=== PATIENT | female | born 1995 | race Caucasian/White ===

== ENCOUNTER 2018-06-24 14:56 | Emergency (ER) | payer OTHER ==
[~2018-06-24] VITALS: Ht 170.2 cm; Wt 63.6 kg
[2018-06-24 16:26] VITALS: BP 109/68
== END 2018-06-24 16:26 | disposition home or self-care (01) ==
LOC: M ED 14:56
DX: Z04.1 Encounter for examination and observation following transport accident (principal); V47.6XXA Car passenger injured in collision with fixed or stationary object in traffic accident, initial encounter; Y92.410 Unspecified street and highway as the place of occurrence of the external cause; Z3A.14 14 weeks gestation of pregnancy

== ENCOUNTER 2018-07-06 11:06 | Emergency (ER) | payer OTHER ==
[~2018-07-06] VITALS: Ht 170.2 cm; Wt 65.6 kg
[2018-07-06 11:07] VITALS: BP 105/67
[2018-07-06] MEDS ORDERED: prenatal PO (11:24)
== END 2018-07-06 11:52 | disposition home or self-care (01) ==
LOC: M ED 11:06
DX: O26.892 Other specified pregnancy related conditions, second trimester (principal); R10.13 Epigastric pain; Z3A.16 16 weeks gestation of pregnancy

== ENCOUNTER 2018-08-25 17:10 | Emergency (ER) | payer OTHER ==
[~2018-08-25] VITALS: Ht 170.2 cm; Wt 71.8 kg
[~2018-08-25 17:10] MED LIST: prenatal PO
[2018-08-25] MEDS ORDERED: MAALOX 30 ML SUSP *UDC PO ONE (17:45)
[2018-08-25 18:05] LABS: HEMATOCRIT 35.5 % (36.0-47.0); HEMOGLOBIN 11.9 g/dl (12.0-15.5); MEAN CORPUSCULAR HEMOGLOBIN 31.5 pg (27.0-33.0); MEAN CORPUSCULAR HGB CONC 33.5 g/dl (32.0-36.5); MEAN CORPUSCULAR VOLUME 93.9 fl (80.0-96.0); PLATELET COUNT, AUTOMATED 231 10^3/uL (150-450); RED BLOOD COUNT 3.78 10^6/uL (4.00-5.40); WHITE BLOOD COUNT 10.8 10^3/uL (4.0-10.0)
[2018-08-25 18:36] LABS: BLOOD UREA NITROGEN 10 MG/DL (7-18); CALCIUM LEVEL 8.9 MG/DL (8.5-10.1); CARBON DIOXIDE LEVEL 26 MEQ/L (21-32); CHLORIDE LEVEL 106 MEQ/L (98-107); CK-MB VALUE MASS < 1.0 NG/ML (<3.6); CPK CREATINE PHOSPHOKINASE 46 U/L (26-192); GLOMERULAR FILTRATION RATE > 60.0 (>60); GLUCOSE, FASTING 70 MG/DL (70-100); MB/CK RELATIVE INDEX 2.17 (< OR =4); POTASSIUM SERUM 3.6 MEQ/L (3.5-5.1); SODIUM LEVEL 141 MEQ/L (136-145); TROPONIN I < 0.02 NG/ML (< 0.10)
[2018-08-25] MEDS ORDERED: ZANT300T9 PO (19:15)
[2018-08-25 19:20] VITALS: BP 109/74
== END 2018-08-25 19:51 | disposition home or self-care (01) ==
LOC: M ED 17:10
DX: K21.9 Gastro-esophageal reflux disease without esophagitis (principal); Z79.899 Other long term (current) drug therapy

== ENCOUNTER 2018-12-16 11:32 | Inpatient (IN) | payer OTHER ==
[2018-12-16] VITALS (19 sets, daily range): BP systolic 108–153; BP diastolic 55–94
[~2018-12-16] VITALS: Ht 170.2 cm; Wt 82.7 kg
[~2018-12-16 11:32] MED LIST changes: +ZANT300T9 PO
[2018-12-16] MEDS ORDERED: LACTATED RINGER'S 1000 ML IV ONE (13:00)
[2018-12-16] MEDS ORDERED: miSOPROStol 50 MCG 1/2 TAB (S0191) PO ONE (13:00)
[2018-12-16 13:29] LABS: HEMATOCRIT 34.5 % (36.0-47.0); HEMOGLOBIN 11.4 g/dl (12.0-15.5); MEAN CORPUSCULAR HEMOGLOBIN 30.3 pg (27.0-33.0); MEAN CORPUSCULAR VOLUME 91.8 fl (80.0-96.0); PLATELET COUNT, AUTOMATED 274 10^3/uL (150-450); RED BLOOD COUNT 3.76 10^6/uL (4.00-5.40); WHITE BLOOD COUNT 8.7 10^3/uL (4.0-10.0)
[2018-12-16 13:49] LABS: ALBUMIN 2.6 GM/DL (3.2-5.2); BILIRUBIN,DIRECT 0.1 MG/DL (0.0-0.2); BILIRUBIN,TOTAL 0.3 MG/DL (0.2-1.0); TOTAL PROTEIN 6.7 GM/DL (6.4-8.2)
--- NOTE | 2018-12-16 14:26 | HPE ---
DATE OF ADMISSION: 12/16/2018 23-year-old 1, para 0, last menstrual period 03/15/2018, estimated date of confinement (EDC) 12/20/2018 at 39 and 4 weeks of gestation. She called with a history of itchy palms and itchy feet, which started about 2 days ago but it was getting progressively worse. Labs are A+, HIV negative, hep negative, RPR negative, rubella immune. Varicella immune. Pap shows ASCUS. HPV negative. Urine was negative. Gonorrhea and chlamydia negative. 1-hour glucose 129. Group B streptococcus (GBS) is negative. PHYSICAL EXAMINATION: She is visibly distressed with itching and scratching her palms and her feet. No evidence of a rash anywhere. No edema. Category one strip. No contractions noted. Symphysis fundus height is 39, vertex, soft, posterior cervix -3 station, 1 cm and high. Blood pressure 135/92, respirations are 18, pulse 87, temperature 97.4. Urine is not available. The rest examination is unremarkable. Category one strip. Normocephalic, atraumatic. Neck: Full range of motion. Pupils equal and reactive to light. Distal pulses symmetric. No evidence of DVT, PE or superficial phlebitis. Chest is clear bilaterally to the bases. No wheezes or rhonchi. No costovertebral angle tenderness. Abdomen soft , four quadrant bowel sounds are noted. She has no rashes, lesions or tattoos. She does have significant pruritus of her hands and feet. She has no arthralgia or myalgia. No complaint of joint pain. No complaint cough, wheeze, shortness of breath or dyspnea on exertion. No infections. No bleeding. Neuro complete. No incontinence, urgency or frequency. No nausea, vomiting, diarrhea or constipation. No diabetic issues. A Pap smear shows ASCUS, HPV negative. STDs are negative. Past medical, surgical, and family history unremarkable. She does not smoke, drink or abuse drugs. She is . There is no domestic violence. to a soldier and good support. We discussed cholestasis in . The fact of we could order bile salts and liver function; however, it takes several days to a week to come back and therefore we will base it on symptomatology and the recommended recommendation is delivery at 39+ weeks. We reviewed consent for vaginal delivery, which of the baby through the vagina with a possible assistance of forceps or vacuum if needed for maternal or indications. Forceps or vacuum device can assist with vaginal delivery if normal pushing efforts cannot achieve delivery on their own or when deliveries needed in emergency for baby's well-being. Medications that may be used to induce or augment labor in order to achieve vaginal delivery and episiotomy may be required to help the baby deliver vaginally. May also require repair of any lacerations or tears to the vagina or vulva that are caused by delivery and in some cases emergencies can arise, which require emergency section so rapidly that we are unable to complete consent forms; however, doctor will talk to her about the need for a section usually required an urgent basis for the well being and maternal well-being. section is delivery through the incision on the abdomen, which is probably safer for baby than continuing on her labor and solely performed when clinically indicated. Other risk of vaginal delivery include bleeding, infection, injury to the vagina or pelvic structures or baby, damage to uterus or reactions to anesthesia, rupture, risk of hysterectomy or life-threatening situations, such as bleeding or . Medications used to augment or induce labor may increase risk of infection, tachysystole, uterine rupture, heart rate abnormality, need for emergency section, or possible hysterectomy because of hemorrhage. There is increased recent perineal vaginal lacerations, risk of urinary of bowel incontinence, risk of use of forceps or vacuums that include scratches, hematomas of the head or intracranial bleed. The patient expressed understanding of same. Appreciates the fact that there is an increased risk of demise with cholestasis in , although not well defined as to the etiology, the risk factor is 0.91% verses 0.38% for non cholestatic . The patient is basically 39 +3 weeks of gestation and the recommendation is for delivery. The patient expressed understanding and so did her . All questions were answered. 45-minute discussion.
[2018-12-16] MEDS ORDERED: OXYTOCIN DRIP 30 UNITS in APPROPRIATE DILUENT 1 EA IV SCH (18:00)
[2018-12-16] MEDS: LR 1,000 ML IV SCH ×2 (18:12→23:00)
--- NOTE | 2018-12-16 18:19 | IPN ---
DATE: 12/16/2018 This lady is a 1, para 0, admitted for induction of labor because of cholestasis in . She was given one 50 mg pill of misoprostol. She has contractions now every 2-7 minutes apart. Category 1 strip. Blood pressure 129/69, respirations 18, pulse 90, temperature 97.5. Re-evaluation examination shows the cervix is now anterior, 2 cm, about 50% effaced, -3 station. Our plan of management is to augment her with Pitocin at the present time and anticipate epidural when the appropriate timing is necessary. Safe to proceed.
[2018-12-16] MEDS: FAMOTIDINE 20 MG TAB PO SCH (21:15)
[2018-12-16] MEDS ORDERED: PROMETHAZINE INJ 25 MG/ML VIAL (J2550) IV ONE (23:00)
[2018-12-16] MEDS ORDERED: BUTORPHANOL 2 MG/ML INJ (J0595) IV ONE (23:00)
[2018-12-17] VITALS (22 sets, daily range): BP systolic 105–140; BP diastolic 50–88
[2018-12-17] MEDS ORDERED: FENTANYL 2MCG/ML ROPIVACAINE 0.2% IN 0.9% NACL 100ML IVBAG As Ordered ONE (00:50)
[2018-12-17] MEDS: LR 1,000 ML IV SCH ×3 (05:22→20:44)
[2018-12-17] MEDS ORDERED: ceFAZolin 2 GM/D5W 50 ML IV BAG (J0690 PER 500MG) As Ordered ONE (08:32)
[2018-12-17] MEDS ORDERED: AZITHROMYCIN INJ 500MG VIAL (J0456) As Ordered ONE (08:32)
[2018-12-17] MEDS ORDERED: BICITRA 30ML SOLN UDC As Ordered ONE (08:35)
[2018-12-17] MEDS ORDERED: ACETAMINOPHEN 650 MG SUPP PR ONE (09:00)
[2018-12-17] MEDS ORDERED: BUPIVACAINE HCL 0.25% 10 ML VIAL SC ONE (09:00)
[2018-12-17] MEDS ORDERED: BICITRA 30ML SOLN UDC PO ONE (09:00)
[2018-12-17] MEDS ORDERED: AZITHROMYCIN INJ 500 MG, VIAL MATE ADAPTER 1 EACH in D5W 250 ML IV ONE (09:00)
[2018-12-17] MEDS ORDERED: SODIUM BICARBONATE 8.4% INJ 50 ML SYRINGE As Ordered ONE (10:35)
[2018-12-17] MEDS ORDERED: ONDANSETRON 4MG/2ML VIAL (J2405) As Ordered ONE (10:35)
[2018-12-17] MEDS ORDERED: dexameTHASONE 4 MG/ML 1ML VIAL (J1100) As Ordered ONE (10:35)
[2018-12-17] MEDS ORDERED: MORPHINE PRES-FREE INJ 10 MG/10 ML VIAL (J2274) As Ordered ONE (10:35)
[2018-12-17] MEDS ORDERED: KETOROLAC 60 MG/2 ML VIAL (J1885) As Ordered ONE (10:35)
[2018-12-17] MEDS ORDERED: LIDOCAINE 2% W/EPIN INJ 20ML **PRES FREE As Ordered ONE (10:35)
[2018-12-17] MEDS ORDERED: OXYTOCIN INJ 10 UNITS/ML VIAL (J2590) As Ordered ONE (10:35)
[2018-12-17 10:44] LABS: CORD GAS ABE V 0.5; CORD GAS HCO3 V 26.9 MEQ/L; CORD GAS O2 SAT V 56.3 %; CORD GAS PCO2 V 49.3 mmHg; CORD GAS PH V 7.355 UNITS; CORD GAS PO2 V 24.9 mmHg; CORD GAS SBC V 23.6 MEQ/L; CORD GAS TCO2 V 28.4 MEQ/L
[2018-12-17 10:49] LABS: CORD GAS ABE A 1.5; CORD GAS HCO3 A 31.1 MEQ/L; CORD GAS O2 SAT A 18.3 %; CORD GAS PH A 7.265 UNITS; CORD GAS PO2 A 12.3 mmHg; CORD GAS SBC A 23.5 MEQ/L; CORD GAS TCO2 A 33.2 MEQ/L
[2018-12-17] MEDS ORDERED: ONDANSETRON 4MG/2ML VIAL (J2405) IV PRN (11:19)
[2018-12-17] MEDS ORDERED: diphenhydrAMINE INJ 50MG/ML VIAL (J1200) IV PRN (11:19)
[2018-12-17] MEDS ORDERED: NALOXONE INJ 0.4 MG/1 ML VIAL (J2310) IV PRN ×2 (11:19)
[2018-12-17] MEDS ORDERED: NALBUPHINE HCL 10 MG/ML AMP (J2300) IV PRN ×2 (11:19→11:45)
[2018-12-17] MEDS ORDERED: OXYTOCIN 30 UNITS IN 0.9% NaCl 500ML IV BAG (J2590) As Ordered ONE (11:25)
[2018-12-17] MEDS ORDERED: OXYTOCIN DRIP 30 UNITS in APPROPRIATE DILUENT 1 EA IV SCH (11:31)
[2018-12-17] MEDS ORDERED: ANUSOL HC CREAM 30GM TOP PRN (11:45)
[2018-12-17] MEDS ORDERED: RHOGAM 300 MCG (1500 IU) INJ (J2790) IM SCH (11:45)
[2018-12-17] MEDS ORDERED: PERCOCET 5MG/325MG TAB PO PRN (11:45)
[2018-12-17] MEDS ORDERED: DOCUSATE SODIUM 100 MG CAP PO PRN (11:45)
[2018-12-17] MEDS ORDERED: LR 1,000 ML IV SCH (11:45)
[2018-12-17] MEDS ORDERED: MORPHINE 10 MG/ML 1ML VIAL (J2270) IV PRN (11:45)
[2018-12-17] MEDS ORDERED: fentaNYL 100 MCG/2 ML INJECTION (J3010) IV PRN (11:45)
[2018-12-17] MEDS ORDERED: MEASLES,MUMPS,RUBELLA VACCINE INJ (MMR-II) (90707) SC SCH (11:45)
[2018-12-17] MEDS ORDERED: MOM 30ML SUSPENSION UDC PO PRN (11:45)
[2018-12-17] MEDS ORDERED: IBUPROFEN 800 MG TAB PO PRN (11:45)
[2018-12-17] MEDS: FAMOTIDINE 20 MG TAB PO SCH ×2 (11:48→21:38)
[2018-12-17] MEDS: METOCLOPRAMIDE INJ 10MG/2ML VIAL (J2765) IV PRN ×2 (14:45→22:04)
--- NOTE | 2018-12-17 14:53 | IPN ---
DATE: 12/17/2018 This lady was assessed after having her epidural. She had had a previous intravenous (IV) medication. After that wore off, she requested to have her epidural. On examination, she is on 8 mL of Pitocin. She had a soft cervix, anterior stretchy 4, an artificial rupture of membranes (ARM) draining moderate amount of clear liquor, almost the point of polyhydramnios. Blood pressure is 105/50, respirations are 49, temperature 97.6. She has a plan category one strip and we will maintain the Pitocin at the present milliunits until required to augment. Anticipate vaginal delivery after adequate contractions and vertex presentation coming well applied to the cervix. Safe to proceed.
--- NOTE | 2018-12-17 15:07 | IPN ---
DATE: 12/17/2018 This lady was admitted because of cholestasis of , augmented with misoprostol followed by Pitocin followed by an artificial rupture of membranes (ARM) draining clear liquor. She had some late decelerations on high-dose Pitocin post epidural and we discontinued the Pitocin. The contractions spaced out. She did have some minimal variability, but no longer having any late decelerations. The Pitocin was restarted at 2 milliunits, now increased to 4 milliunits per minute. Re-examination of the patient is 100% effaced, 6 cm, vertex, occiput posterior (OP), -2 station, clear liquor still presenting. No maternal fever. Blood pressure 107/66, respirations are 18, pulse is 52. Our plan of management is to continue Pitocin. We explained to the patient as long as baby is coping, we will continue on and anticipate vaginal delivery. If there is persistent lates or were an inability to get adequate contractions, she may end up with a primary section. The patient expressed understanding of the plan of care. Safe to proceed.
--- NOTE | 2018-12-17 15:19 | IPN ---
DATE: 12/17/2018 This lady is a 1, para 0, admitted for induction of labor because of cholestasis in . She was on Pitocin and had some late decelerations with decreased variability. We discontinued the Pitocin, changed the position, bolused her with fluids. Baseline came back to normal. We restarted Pitocin at 4 milliunits and again, she had some decelerations with decreased variability and the occasional late deceleration. On pelvic examination, she was still 6 cm, occiput posterior (OP) with thickening anterior lip and the vertex was not well applied to the cervix. At this point, because we are unable to continue with augmentation and getting effective contractions, our option was to do a primary section for failure to dilate and failure to progress with non-reassuring heart tones. Discussed the option with the patient and . Expressed understanding of the reason for section. Previously, we had discussed the risks of section including hemorrhage, infection, perforation, , reoperation, remote possibility of blood transfusion, remote possibility of hysterectomy, remote possibility of laceration and baby ending up in the intensive care unit (NICU). The patient again expressed understanding of our concerns, signed the consent form. We are now waiting for anesthesia. Neonatology was notified.
[2018-12-17] MEDS: KETOROLAC 30 MG/ML VIAL (J1885) IV SCH ×2 (17:17→22:04)
[2018-12-18] MEDS: LR 1,000 ML IV SCH ×2 (01:00→08:12)
[2018-12-18 02:41] VITALS: BP 117/57
[2018-12-18] MEDS: KETOROLAC 30 MG/ML VIAL (J1885) IV SCH (05:37)
--- NOTE | 2018-12-18 05:41 | IPN ---
DATE OF VISIT: 12/17/2018 This patient has requested circumcision of their male . After discussing risks and benefits of circumcision, medical and nonmedical indications, penile block and aftercare expressed understanding of penile block and aftercare. All questions were answered, 20-minute discussion. The patient signed the consent form and we await clearance by the accounting support specialist. cc: SUBWAY OPERATOR Alesha CHILDERS
[2018-12-18 06:15] VITALS: BP 126/58
[2018-12-18 07:28] LABS: HEMATOCRIT 27.6 % (36.0-47.0); MEAN CORPUSCULAR HEMOGLOBIN 30.8 pg (27.0-33.0); MEAN CORPUSCULAR HGB CONC 32.6 g/dl (32.0-36.5); MEAN CORPUSCULAR VOLUME 94.5 fl (80.0-96.0); PLATELET COUNT, AUTOMATED 226 10^3/uL (150-450); RED BLOOD COUNT 2.92 10^6/uL (4.00-5.40); WHITE BLOOD COUNT 12.4 10^3/uL (4.0-10.0)
[2018-12-18] MEDS: FAMOTIDINE 20 MG TAB PO SCH ×2 (08:10→21:31)
[2018-12-18] MEDS: PRENATAL VITAMINS CHEWABLE TABLET PO SCH (08:10)
[2018-12-18 10:00] VITALS: BP 129/70
--- NOTE | 2018-12-18 11:24 | RO ---
DATE OF PROCEDURE: 12/17/2018 PREOPERATIVE DIAGNOSES: Nonreassuring heart tones. Failure to progress. Persistent occipitoposterior (POP) position. POSTOPERATIVE DIAGNOSES: Nonreassuring for heart tones remote from delivery. Failure progress. Cord times one. OPERATION PROPOSED: Primary section. OPERATION PERFORMED: Primary section. SURGEON: Barrera Garcia MD DRESS FITTER: Dr. Marzena Peraza for extraction, retraction and visualization. ANESTHESIA: Epidural plus local anesthetic for intraperitoneal procedures. ESTIMATED BLOOD LOSS: 400 mL. After adequate time-out, prepped and draped in the supine position, Mendez catheter in the bladder draining clear urine, acetaminophen suppository 1300 mg per rectum. Appropriate antibiotics timed and sequential on place. A Pfannenstiel incision was made two fingerbreadths above the symphysis pubis, passing through abdominal layers securing hemostasis. Opening peritoneal cavity bladder reflected well down anteriorly, low transverse incision was made, POP noted with clear liqua delivered a live male infant weighing 8 pounds 7 ounces, 3830 grams, scores of seven and nine at 1 and 5 minutes respectfully. Cord around the neck once. Arterial pH 7.26, base excess 1.5, venous pH 7.35, base excess of 0.5. The placenta was manually removed, three-vessel cord, membranes and tissues intact. Swept out the intrauterine contents. No evidence of trailing membranes or tissue. The lower segment was oversewn in the usual fashion in two layers. With imbricating the second layer reperitonealization was performed. With instrument and pad count correct, we visualized the ovaries and tubes bilaterally. The abdomen then closed, running stitch for the peritoneum, same for the fascia, interrupted for subcu, Dexon to the skin. Marcaine 0.25% 10 mL, spray and tape and the patient was sent to recovery in good condition.
--- NOTE | 2018-12-18 11:29 | IPN ---
DATE: 12/18/2018 This lady is a 23-year-old was admitted for cholestasis of and required to have a primary section because of nonreassuring heart tones, failure to progress, failure to descend, POP and a cord issue. She delivered a live male infant 8 pounds 7 ounces, 3830 grams, scores of 7 and 9 at 1 and 5 minutes, respectively. Arterial pH was 7.26, base excess was 1.5. Venous pH was 7.35, base excess was 0.5. On her first postoperative day, she is doing well. Her itchiness is resolved from her hands and her feet. Her blood pressure is 126/58, respirations are 18, pulse 91, temperature 97.1. We discussed phlebitis, cystitis, mastitis, endometritis, cellulitis, diet, exercise, pain management, perineal, breast and wound care. The rest of the examination is unremarkable. She is normocephalic, atraumatic. Neck: Full range of motion. Pupils equal and reactive to light. Distal pulses symmetric. No evidence of DVT, PE or superficial phlebitis. Chest is clear bilaterally to the bases. No wheezes or rhonchi. No costovertebral angle tenderness. Abdomen is soft. Uterus two below. Lochia is moderate. Four quadrant bowel sounds are noted. Incision is clean and dry. No rashes, lesions or pruritus. No arthralgia, myalgia. No complaint of joint pain. No cough, wheeze, shortness of breath or dyspnea on exertion. The patient is presently mobile, passing gas and is voiding well. In summary, we have a term gestation delivered a live male infant by section. Plans are for discharge tomorrow. Medications are dispensed. The narcotics are at [place]. She has a 2-week incision check and 6 weeks check.
[2018-12-18] MEDS: ACETAMINOPHEN 500 MG TAB PO PRN (12:50)
[2018-12-18] MEDS ORDERED: IBUPROFEN 800 MG TAB PO PRN (13:00)
[2018-12-18 14:00] VITALS: BP 122/74
[2018-12-18 18:00] VITALS: BP 116/61
[2018-12-18 22:00] VITALS: BP 125/77
[2018-12-19] MEDS: PERCOCET 5MG/325MG TAB PO PRN ×2 (01:19→07:34)
[2018-12-19 02:00] VITALS: BP 124/85
[2018-12-19 06:00] VITALS: BP 140/88
[2018-12-19] MEDS: PRENATAL VITAMINS CHEWABLE TABLET PO SCH (07:34)
[2018-12-19] MEDS: FAMOTIDINE 20 MG TAB PO SCH (07:34)
[2018-12-19] MEDS ORDERED: PERCOCET PO (08:46)
[2018-12-19] MEDS ORDERED: IBUP80TA PO (08:46)
--- NOTE | 2018-12-19 09:10 | DS.PDOC ---
Discharge Summary General Date of Admission Dec 16, 2018 at 12:56 Date of Discharge 19Dec2018 Discharge Summary HOSPITAL COURSE: Ms. Cabral is a 23 yo G1 now P1 who was admitted for an IOL for ICP and then underwent an uncomplicated PLTCS on 17Dec2018 for NRFHT and arrest of dilation. Her course has been unremarkable. On her day of discharge she met all appropriate discharge criteria. She was ambulating, voiding, tolerating a regular diet, had minimal lochia, and her pain was well controlled with PO pain medications. DISCHARGE MEDICATIONS: Please see below. ALLERGIES: Please see below. PHYSICAL EXAMINATION ON DISCHARGE: VITAL SIGNS: Please see below. GENERAL: AAOX3, laying in bed, NAD, pleasant and conversant ABDOMINAL EXAMINATION: Abdomen soft, nondistended. No tenderness to palpation. Fundus firm at U-2. No fundal tenderness. Incision well appearing and steri strips still in place. Incision clean/dry/intact. EXTREMITIES: No edema PSYCHIATRIC EXAMINATION: Affect appropriate LABORATORY DATA: Please see below. ACTIVITY: Pelvic rest for 6 weeks. No heavy lifting for 6 weeks DIET: Regular DISCHARGE PLAN: Discharge home DISPOSITION: .Discharge home on 19Dec2018 DISCHARGE INSTRUCTIONS: 1. Pelvic rest for 6weeks 2. No heavy lifting for 6 weeks ITEMS TO FOLLOWUP ON ON OUTPATIENT: 1. 2 week incision check DISCHARGE CONDITION: Stable TIME SPENT ON DISCHARGE: Greater than 20 minutes. Marlo Yap DO Vital Signs/I&Os Vital Signs Date Time Temp Pulse Resp B/P (MAP) Pulse Ox O2 Delivery O2 Flow Rate FiO2 12/19/18 08:04 18 12/19/18 06:00 98.3 75 140/88 (105) 98 I&O- Last 24 Hours up to 6 AM 12/19/18 06:00 Intake Total 300 ml Output Total 700 ml Balance -400 ml Discharge Medications Scheduled Ranitidine HCl (Zantac) 300 Mg Tab, 1 TAB PO QHS [] , 1 TAB PO DAILY, (Reported) Scheduled PRN Ibuprofen (Ibuprofen) 800 Mg Tablet, 800 MG PO Q8HP PRN for PAIN SCALE 6-10 Oxycodone/Acetaminophen (Oxycodone-Acetaminophen 5-325) 1 Each Tablet, 1 TAB PO Q4HP PRN for MILD PAIN (PS 1-4) Allergies Coded Allergies: No Known Allergies (Unverified , 06/24/18) MARLO YAP DO Dec 19, 2018 09:10
[2018-12-19] MEDS: ACETAMINOPHEN 500 MG TAB PO PRN (11:16)
== END 2018-12-19 11:43 | disposition home or self-care (01) | DRG 771 ==
LOC: M LDO 11:32 → M LDI 12:56 → M OBS 12-17 13:08
PROVIDERS: ADMIT Obstetrics & Gynecology; ATTEND Obstetrics & Gynecology
PROC: 3E0P7GC Introduction of Other Therapeutic Substance into Female Reproductive, Via Natural or Artificial Opening (ICD-10-PCS; 2018-12-16)
PROC: 10907ZC Drainage of Amniotic Fluid, Therapeutic from Products of Conception, Via Natural or Artificial Opening (ICD-10-PCS; 2018-12-17)
PROC: 10D00Z1 Extraction of Products of Conception, Low, Open Approach (ICD-10-PCS; principal; 2018-12-17 10:00)
DX: O26.613 Liver and biliary tract disorders in pregnancy, third trimester (principal); K83.1 Obstruction of bile duct; Z3A.39 39 weeks gestation of pregnancy; O76 Abnormality in fetal heart rate and rhythm complicating labor and delivery; O62.0 Primary inadequate contractions; O64.0XX0 Obstructed labor due to incomplete rotation of fetal head, not applicable or unspecified; O69.81X0 Labor and delivery complicated by cord around neck, without compression, not applicable or unspecified; Z37.0 Single live birth

== ENCOUNTER 2019-01-05 10:35 | Emergency (ER) | payer OTHER ==
[~2019-01-05] VITALS: Ht 170.2 cm; Wt 72.7 kg
[~2019-01-05 10:35] MED LIST changes: +IBUP80TA PO; +PERCOCET PO
[2019-01-05 11:41] LABS: BASO % 0.7 % (0.0-1.0); EOS # 0.1 10^3/uL (0.0-0.50); EOS % 1.5 % (0.0-3.0); HEMATOCRIT 41.3 % (36.0-47.0); HEMOGLOBIN 13.2 g/dl (12.0-15.5); LYMPH # 2.4 10^3/uL (1.5-6.5); LYMPH % 43.1 % (24.0-44.0); MEAN CORPUSCULAR HEMOGLOBIN 29.1 pg (27.0-33.0); MONO # 0.4 10^3/uL (0.0-0.8); MONO % 6.4 % (0.0-5.0); NEUTROPHILS # 2.6 10^3/uL (1.8-7.7); NEUTROPHILS % 48.1 % (36.0-66.0); PLATELET COUNT, AUTOMATED 406 10^3/uL (150-450); RED BLOOD COUNT 4.54 10^6/uL (4.00-5.40); WHITE BLOOD COUNT 5.5 10^3/uL (4.0-10.0)
[2019-01-05] MEDS ORDERED: ISOVUE-370 76% 100ML VIAL (Q9967) As Ordered ONE (11:45)
[2019-01-05 12:08] LABS: ALBUMIN 3.7 GM/DL (3.2-5.2); ALT/SGPT 42 U/L (12-78); BILIRUBIN,DIRECT < 0.1 MG/DL (0.0-0.2); BILIRUBIN,TOTAL 0.6 MG/DL (0.2-1.0); TOTAL PROTEIN 7.8 GM/DL (6.4-8.2)
--- NOTE | 2019-01-05 12:15 | REP ---
Clinical: Recent section with acute lower abdominal pain and rectal bleeding. Technique: Axial contrast enhanced images from the lung bases to the pubic symphysis using 100 ml Isovue 370 intravenous contrast material with coronal and sagittal re-formations. Findings: Lung bases are clear. Visualized heart and pericardium normal. Liver, spleen, pancreas, gallbladder, bilateral adrenal glands and kidneys are normal. The enteric system is without obstruction or acute inflammatory process. Normal terminal ileum and appendix are identified in the right lower quadrant. Pelvis demonstrates partially collapsed normal bladder and heterogeneous enlarged uterus/adnexa. No pelvic fluid or ascites. Subtle stranding in the anterior abdominal subcutaneous tissues consistent with recent section and without evidence for hematoma/seroma or obvious acute pathology. No free air. No ascites. No adenopathy. Abdominal aorta and vasculature normal. Surrounding musculoskeletal structures are intact. Impression: 1. Normal appearance to the uterus/adnexa. 2. No acute abdominopelvic pathology appreciated. Electronically Signed by Khai Briggs MD 01/05/2019 12:06 P
[2019-01-05] MEDS ORDERED: COLA100C5 PO (12:37)
[2019-01-05] MEDS ORDERED: MIRA3350 PO (12:37)
[2019-01-05] MEDS ORDERED: PROC2.5C TOP (12:37)
[2019-01-05 12:54] VITALS: BP 116/62
== END 2019-01-05 12:58 | disposition home or self-care (01) ==
LOC: M ED 10:35
DX: O90.89 Other complications of the puerperium, not elsewhere classified (principal); K62.5 Hemorrhage of anus and rectum; R10.9 Unspecified abdominal pain; K59.00 Constipation, unspecified; R19.7 Diarrhea, unspecified; Z79.899 Other long term (current) drug therapy
CPT/HCPCS: 74177; 80047; 80076; 84702; 85025; 99284; Q9967

== ENCOUNTER 2019-05-06 23:17 | Emergency (ER) | payer OTHER ==
[~2019-05-06] VITALS: Ht 170.2 cm; Wt 72.7 kg
[~2019-05-06 23:17] MED LIST changes: +COLA100C5 PO; +MIRA3350 PO; +PROC2.5C TOP
[2019-05-06] MEDS ORDERED: KETOROLAC TROMETHAMINE 10 MG TAB PO ONE (23:45)
[2019-05-07 00:12] LABS: BASO % 0.2 % (0.0-1.0); EOS % 0.2 % (0.0-3.0); HEMATOCRIT 42.3 % (36.0-47.0); HEMOGLOBIN 13.5 g/dl (12.0-15.5); LYMPH # 2.6 10^3/uL (1.5-5.0); LYMPH % 31.4 % (24.0-44.0); MEAN CORPUSCULAR HEMOGLOBIN 28.3 pg (27.0-33.0); MEAN CORPUSCULAR HGB CONC 31.9 g/dl (32.0-36.5); MEAN CORPUSCULAR VOLUME 88.7 fl (80.0-96.0); MONO # 0.4 10^3/uL (0.0-0.8); MONO % 5.1 % (0.0-5.0); NEUTROPHILS # 5.1 10^3/uL (1.5-8.5); NEUTROPHILS % 62.4 % (36.0-66.0); PLATELET COUNT, AUTOMATED 356 10^3/uL (150-450); RED BLOOD COUNT 4.77 10^6/uL (4.00-5.40); WHITE BLOOD COUNT 8.2 10^3/uL (4.0-10.0)
[2019-05-07 00:20] LABS: BLOOD UREA NITROGEN 12 MG/DL (7-18); CALCIUM LEVEL 8.9 MG/DL (8.5-10.1); CARBON DIOXIDE LEVEL 29 MEQ/L (21-32); CHLORIDE LEVEL 107 MEQ/L (98-107); CREATININE FOR GFR 1.19 MG/DL (0.55-1.30); GLOMERULAR FILTRATION RATE > 60.0 (>60); GLUCOSE, FASTING 132 MG/DL (70-100); POTASSIUM SERUM 3.9 MEQ/L (3.5-5.1); SODIUM LEVEL 143 MEQ/L (136-145)
--- NOTE | 2019-05-07 00:49 | REPVR ---
PROCEDURE INFORMATION: Exam: US Pelvis Complete, Transabdominal and US Pelvis, Transvaginal Exam date and time: 05/06/2019 12:35 AM Age: 23 years old Clinical history: Dyspareunia (painful intercourse); Prior surgery; Surgery date: 1-6 months; Surgery type: C- section in December; Additional info: Pelvic pain TECHNIQUE: Imaging protocol: Real-time transabdominal and transvaginal pelvic ultrasound (complete) with image documentation. Transvaginal imaging was used for better evaluation of the endometrium and adnexa. COMPARISON: CT ABD/PEL W/IV CONTRAST ONLY 01/05/2019 11:52 AM FINDINGS: Uterus/cervix: The uterus measures 8.8 cm in its cephalocaudad dimension and 4.6 x 5.1 cm in its AP and lateral dimensions transabdominal. The uterus measures 9.2 cm in its cephalocaudad dimension and 4.3 x 6.0 cm in its AP and lateral dimensions transvaginal. The endometrium measures 5 mm transabdominal and 6 mm transvaginal. Right adnexa: The right ovary measures 5.1 x 5.0 x 3.1 cm in its a simple appearing cyst measuring 2.5 x 1.5 x 4.2 cm. There is right ovarian arterial and venous blood flow. Left adnexa: The left ovary measures 3.1 x 2.3 x 2.6 cm and demonstrates arterial and venous blood flow. Free fluid: Mild free fluid in the cul-de-sac. Bladder: The urinary bladder is decompressed measuring 3.4 x 1.0 x 4.6 cm. IMPRESSION: 1. Right ovarian cyst measuring 2.5 x 1.5 x 4.2 cm. 2. Mild free fluid in the cul-de-sac which is nonspecific. 3. Otherwise negative pelvic sonogram. Electronically signed by: Steve Gallo On 05/07/2019 00:48:38 AM
[2019-05-07] MEDS ORDERED: CIPR-249 PO (01:53)
[2019-05-07 02:00] VITALS: BP 132/68
[2019-05-07 02:33] LABS: CHLAMYDIA DNA AMPLIFICATION NEGATIVE (NEGATIVE); GC DNA AMPLIFICATION NEGATIVE (NEGATIVE)
== END 2019-05-07 02:04 | disposition home or self-care (01) ==
LOC: M ED 23:17
DX: N83.201 Unspecified ovarian cyst, right side (principal); N94.10 Unspecified dyspareunia; N39.0 Urinary tract infection, site not specified; Z79.3 Long term (current) use of hormonal contraceptives